=== PATIENT | male | born 1970 | race African-American/Black ===

== ENCOUNTER 2022-02-04 20:18 | Emergency (ER) | payer OTHER ==
[~2022-02-04] VITALS: Ht 177.8 cm; Wt 91.0 kg
[2022-02-04] MEDS ORDERED: LIDOCAINE HCL 1% 20ML VIAL (Pyxis) INJ INFIL ONE (20:30)
[2022-02-04] MEDS ORDERED: HYDROCODONE/ACETAMINOPHEN 10/325MG TABLET PO ONE (21:30)
[2022-02-04 21:54] VITALS: BP 164/92
[2022-02-04] MEDS ORDERED: TETANUS, DIPHTHERIA, PERTUSSIS VAC/PF 0.5ML (>10YR OLD) IM ONE (22:15)
[2022-02-04] MEDS ORDERED: CEFAZOLIN 1000MG PREMIX 50 ML IV ONE (22:15)
[2022-02-04] MEDS ORDERED: SULF1TAB48 MT ×3 (22:42→23:13)
[2022-02-04] MEDS ORDERED: CLIN-116 MT ×3 (22:42→23:13)
[2022-02-04] MEDS ORDERED: NAPR-1176 MT ×3 (22:42→23:13)
== END 2022-02-04 23:40 | disposition home or self-care (01) ==
LOC: ER 20:18
DX: S92.312A Displaced fracture of first metatarsal bone, left foot, initial encounter for closed fracture (principal); X58.XXXA Exposure to other specified factors, initial encounter; Y93.89 Activity, other specified; Y92.89 Other specified places as the place of occurrence of the external cause; Y99.8 Other external cause status
CPT/HCPCS: 73630; 90471; 90715; 96365; 99284; J0690; J3490; Z7610